=== PATIENT | female | born 2000 | race Caucasian/White ===

== ENCOUNTER 2024-01-14 10:19 | Emergency (ER) | payer SELFPAY ==
--- NOTE | ~2024-01-14 | XR_ITS ---
XR chest 2V Ordering provider: Jamie Reich APRN History: 23 years Female with . cough, sob when taking long walks or up stairs . Comparison: None. FINDINGS: MEDIASTINUM: The cardiac silhouette is not enlarged. LUNGS: No infiltrates, effusions or pneumothorax. Prominent markings in the lower lobes. OTHER: No free air under the diaphragm. IMPRESSION: No acute cardiopulmonary pathology. Reviewed, dictated and finalized at location A.
[2024-01-14 10:26] VITALS: BP 127/67; PULSE 88; RESP 16; TEMP 36.6; O2SAT 100
--- NOTE | 2024-01-14 10:27 | ECG_ITS ---
Test Date: 2024-01-14 09:56:10 Measurements Intervals Transfer Rate: 100 P: 53 TX: 141 QRS: 3 QRSD: 80 T: 19 QT: 326 QTc: 420 Interpretive Statements SINUS TACHYCARDIA MINIMAL VOLTAGE CRITERIA FOR LVH, CONSIDER NORMAL VARIANT [MEETS CRITERIA IN ONE OF: R(aVL), S(V1), R(V5), R(V5/V6)+S(V1)] No previous ECG available for comparison Electronically Signed On 01-14-2024 11:29:49 CDT by Salena Fuller M.D.
--- NOTE | 2024-01-14 10:27 | ED.DIZZY ---
HPI - Dizziness General Chief Complaint: Dizziness Stated Complaint: Dizzy Spells Time Seen by Provider: 01/14/24 10:30 Source: patient Mode of arrival: ambulatory Limitations: no limitations History of Present Illness HPI Narrative: Heather is a 23-year-old female patient presenting to the clinic today with complaints of intermittent dizzy spells. She reports today in class she had an episode the lasted about 5-10 minutes where she felt lightheaded, was seeing spots, and felt as though the room was closing in on her. [place] anxious at the time that this occurred as students were filling up the class room. She has had some moderate stress but nothing to severe lately. This has happened about 4-5 times over the last several days. Also reports with long walks she does become winded. Denies any history of anxiety or depression. She currently does not take any medications. Menstrual periods are regular for her- no heavy bleeding. Denies any URI symptoms, headache, chest pain, nausea, vomiting, diarrhea, or any UTI symptoms. She ate 3 eggs this morning for breakfast. Related Data Allergies Allergy/AdvReac Type Severity Reaction Status Date / Time No Known Allergies Allergy Verified 01/14/24 10:32 Review of Systems Review of Systems: Pertinent positives per HPI. Patient denies any fever, chills, rash, headache, visual changes, cough, runny nose, sore throat, shortness of breath, chest pain, palpitations, nausea, vomiting, diarrhea, constipation, abdominal pain, or any urinary issues. PMFSH Comments At the time of my signature, I reviewed and agree with the nursing past medical, surgical, social, and family history. There is no relevant family history pertinent to the patient complaint. Exam Narrative: General: Well-developed, well nourished, in no apparent distress Head: Normocephalic, atraumatic Eyes: Pupils equally round and reactive to light bilaterally, EOM intact, sclera and conjunctive clear, no discharge, lids normal Ears: TMs intact and clear, ear canals clear, no drainage, grossly hearing normal. Nose: Nares patent, no discharge, no inflammation, no sinus tenderness. Mouth: Oropharynx without lesions or masses, good dentition, MMM. Tongue midline, even rise and fall of uvula Neck: Supple, trachea midline, no enlargement of anterior or posterior cervical nodes, no thyroid masses or goiter palpable. Cardio: Regular rate and rhythm, s1 and s2 normal, no murmur appreciated. Resp: Clear to auscultation bilaterally anteriorly and posteriorly, no rhonchi, rales, wheezing or rubs Musculoskeletal: No deformity, non-tender to palpation, grossly normal range of motion, muscle strength strong and equal, peripheral pulse strong, no edema, no cyanosis, normal gait and station Neuro: Alert and oriented x4 with normal speech, no focal deficits, cranial nerves I through XII intact, muscle strength 5 out of 5, sensation intact bilaterally, negative Romberg test Course Course Emergency Course: Portions of this record may have been created with voice recognition software. Level of Care: Express Care Visit Vital Signs Vital signs: Vital Signs Temperature 36.6 C 01/14/24 10:26 Pulse Rate 88 01/14/24 10:26 Respiratory Rate 16 01/14/24 10:26 Blood Pressure 127/67 01/14/24 10:26 Pulse Oximetry 100 01/14/24 10:26 Temperature 36.6 C 01/14/24 10:26 Pulse Rate 100 01/14/24 10:45 Respiratory Rate 16 01/14/24 10:26 Blood Pressure 162/112 H 01/14/24 10:45 Pulse Oximetry 100 01/14/24 10:26 Vital signs reviewed MDM - Dizziness MDM Narrative Medical decision making narrative: At the time of visit patient is resting comfortably on the exam table. Patient appears to be nontoxic. EKG: EKG shows sinus tachycardia with heart rate of 100 beats per minute. No ectopy. No ST elevation, depression, or T-wave inversion noted. No comparison EKG available Labs: Blood sugar was 92 in the clin
[2024-01-14 10:45] VITALS: BP 153/94; BP 155/99; BP 162/112; PULSE 100; PULSE 99
[2024-01-14 10:46] LABS: Glucose Point of Care 92 mg/dl (65-105)
[2024-01-14 10:48] LABS: BEDSIDEPREGUCG Negative (Negative); EDUAAPPEAR Cloudy; EDUABILI Negative (Negative); EDUABLOOD Trace (Negative); EDUACOLOR1 Yellow; EDUAGLUCOSE Negative (Negative); EDUAKETONE Negative (Negative); EDUALEUKO 1+ (Negative); EDUANITRATE Negative (Negative); EDUAPROTEIN Negative (Negative); EDUASPGRAVITY 1.015; EDUAUROBILI 0.2
== END 2024-01-14 11:27 | disposition home or self-care (01) ==
PROVIDERS: Emergency Provider Nurse Practitioner Family
DX: R55 Syncope and collapse (principal); N30.01 Acute cystitis with hematuria
CPT/HCPCS: 71046; 81003; 81025; 82948; 87086; 87186; 93005; 99203; G0463